=== PATIENT | male | born 1960 | race Two or more races ===

== ENCOUNTER 2020-10-11 22:22 | Emergency (ER) | payer OTHER ==
[~2020-10-11] VITALS: Ht 167.6 cm; Wt 72.6 kg
--- NOTE | 2020-10-11 22:22 | NUR ---
PT TO ER [facility] FOR ETOH. PER EMS PT CONTINUES TO SLIP OUT OF WHEELCHAIR. NO IMMEDIATE SIGNS OF DISTRESS NOTED. PT VITAL SIGNS STABLE. PT APPEARS INTOXICATED BUT ANSWERING QUESTIONS APPROPRIATELY. PT ADMITS TO DRINKING BEER. PT TO ER BED. WILL CONT TO MONITOR PT.
--- NOTE | 2020-10-12 06:56 | NUR ---
PT DENIES BEING HOMELESS. REFUSES TO SIGNS HOMELESS WAIVER.
--- NOTE | 2020-10-12 06:56 | NUR ---
Patient is awake and alert to self, day, and place. States that he is in a hurry to catch his bus. Pt ok to be discharged by Dr Bedolla. Pt provided with food upon discharge. Patient discharged to home in stable condition. Written and verbal after care instructions given. Patient verbalizes understanding of instruction. Pt discharge via personal wheelchair.
[2020-10-12 06:58] VITALS: BP 132/75
== END 2020-10-12 06:59 | disposition home or self-care (01) ==
LOC: ER 22:25
DX: F10.129 Alcohol abuse with intoxication, unspecified (principal); Y90.9 Presence of alcohol in blood, level not specified
CPT/HCPCS: 82962-TC